=== PATIENT | female | born 1980 | race Caucasian/White ===

== ENCOUNTER 2022-10-30 21:26 | Emergency (ER) | payer OTHER, MEDICAID ==
[~2022-10-30 21:26] MED LIST: HYDR-3917 PO; IBUP-1971 PO; NORE-99 PO; ONDA-8 TL
[2022-10-30 21:56] VITALS: BP_SYST 93
--- NOTE | 2022-10-30 22:30 | NUR ---
ER at bedside examining patient.
[2022-10-30] MEDS ORDERED: ONDANSETRON 4 MG ODT TAB PO ONE (23:45)
[2022-10-30] MEDS ORDERED: DIPHENHYDRAMINE INJ 50 MG/ML VIAL IM ONE (23:45)
[2022-10-30] MEDS ORDERED: KETOROLAC TROMETHAMINE 30 MG VIAL IM ONE (23:45)
[2022-10-30] MEDS ORDERED: ACETAMINOPHEN 500 MG TABLET PO ONE (23:45)
[2022-10-31] MEDS ORDERED: [UNRECOGNIZED DRUG - CODE] PO (00:51)
[2022-10-31] MEDS ORDERED: SUMA1TAB6 PO (00:51)
[2022-10-31 01:07] VITALS: BP_SYST 138
--- NOTE | 2022-10-31 01:07 | NUR ---
Patient given written and verbal discharge instructions and verbalizes understanding. ER MD discussed with patient the results and treatment provided. Patient in stable condition. ID arm band removed. IV catheter removed intact and dressing applied, no active bleeding. Rx of ASPIRIN, SUMATRIPTAN given. Patient educated on pain management and to follow up with PMD. Pain Scale . Opportunity for questions provided and answered. Medication side effect fact sheet provided.
== END 2022-10-31 01:03 | disposition home or self-care (01) ==
LOC: SED 21:26
DX: G43.909 Migraine, unspecified, not intractable, without status migrainosus (principal); R42 Dizziness and giddiness; H57.11 Ocular pain, right eye; Z79.899 Other long term (current) drug therapy
CPT/HCPCS: 99283; 96372; Q0162; J1200; J1885

== ENCOUNTER 2023-01-19 13:18 | Emergency (ER) | payer OTHER, MEDICAID ==
[~2023-01-19] VITALS: Ht 157.5 cm; Wt 49.9 kg
[~2023-01-19 13:18] MED LIST changes: +SUMA1TAB6 PO; +[UNRECOGNIZED DRUG - CODE] PO
[2023-01-19 13:30] VITALS: BP_SYST 125; PULSE 67; RESP 19; TEMP 98; O2SAT 99
[2023-01-19 14:36] LABS: SERUM HCG (QUALITATIVE) NEGATIVE (NEGATIVE)
[2023-01-19 14:38] LABS: BASOPHILS # (AUTO) 0.1 K/uL (0.0-0.2); BASOPHILS % (AUTO) 0.7 % (0.0-2.0); EOSINOPHILS # (AUTO) 0.2 K/uL (0.0-0.4); EOSINOPHILS % (AUTO) 1.8 % (0.0-4.0); HEMATOCRIT 37.8 % (36-48); LYMPHOCYTES # (AUTO) 3.6 K/uL (1.0-5.5); LYMPHOCYTES % (AUTO) 32.5 % (20.5-51.5); MEAN CORPUSCULAR HEMOGLOBIN 29 pg (27-31); MEAN CORPUSCULAR HGB CONC 32 % (32-36); MEAN CORPUSCULAR VOLUME 92 fL (79.0-98.0); MONOCYTES # (AUTO) 0.9 K/uL (0.0-1.0); NEUTROPHILS # (AUTO) 6.4 K/uL (1.8-7.7); PLATELET COUNT (AUTO) 210 K/uL (130-430); RED BLOOD CELL COUNT(AUTO) 4.11 MIL/uL (4.2-6.2); RED CELL DISTRIBUTION WIDTH 15.6 % (9.0-15.0); WHITE BLOOD COUNT (AUTO) 11.1 K/uL (4.8-10.8)
[2023-01-19 14:41] LABS: CREATININE 0.72 mg/dL (0.55-1.30); POTASSIUM 3.6 mmol/L (3.5-5.1)
[2023-01-19 14:42] LABS: INR 1.1 (0.8-1.2); PROTHROMBIN TIME 11.3 SECS (9.5-12.5)
[2023-01-19] MEDS ORDERED: IBUPROFEN 800 MG TABLET PO ONE (14:45)
[2023-01-19] MEDS ORDERED: HYDROcodone/ACETAMIN 10-325 MG TAB PO ONE (14:45)
[2023-01-19 14:46] LABS: ALBUMIN 4.3 g/dL (3.4-4.8); TOTAL BILIRUBIN 0.6 mg/dL (0.0-1.0); TOTAL PROTEIN, SERUM 7.6 g/dL (6.4-8.3)
[2023-01-19] MEDS ORDERED: IBUP-1969 PO (15:54)
[2023-01-19] MEDS ORDERED: HYDR-3927 PO (15:54)
[2023-01-19 16:13] VITALS: BP_SYST 117; PULSE 66; RESP 14; TEMP 97.6; O2SAT 99
== END 2023-01-19 16:12 | disposition home or self-care (01) ==
LOC: SED 13:18
DX: S93.515A Sprain of interphalangeal joint of left lesser toe(s), initial encounter (principal); N93.9 Abnormal uterine and vaginal bleeding, unspecified; Z88.8 Allergy status to other drugs, medicaments and biological substances; Z79.899 Other long term (current) drug therapy; W10.9XXA Fall (on) (from) unspecified stairs and steps, initial encounter; Y93.89 Activity, other specified; Y92.89 Other specified places as the place of occurrence of the external cause; Y99.8 Other external cause status
CPT/HCPCS: 36415; 80053; 84703; 85025; 85610-TC; 85730-TC; 99283

== ENCOUNTER 2023-07-18 20:03 | Emergency (ER) | payer OTHER, MEDICAID ==
[~2023-07-18] VITALS: Ht 157.5 cm; Wt 54.4 kg
[~2023-07-18 20:03] MED LIST changes: +HYDR-3927 PO; +IBUP-1969 PO
[2023-07-18 20:13] VITALS: BP_SYST 108; PULSE 82; RESP 16; TEMP 97.6; O2SAT 98
[2023-07-18] MEDS ORDERED: HYDR-3917 PO (21:41)
[2023-07-18] MEDS ORDERED: IBUP-1969 PO (21:41)
[2023-07-18 21:45] LABS: INFLUENZA TYPE A NEGATIVE (NEGATIVE); INFLUENZA TYPE B NEGATIVE (NEGATIVE)
[2023-07-18] MEDS: IPRATROPIUM/ALBUTEROL SULFATE 3 ML AMPUL.NEB (DUONEB) INH ONE (22:13)
[2023-07-18] MEDS ORDERED: PSEU30TA36 PO (22:22)
[2023-07-18] MEDS ORDERED: ALBMDI INH (22:22)
[2023-07-18 22:38] VITALS: BP_SYST 105; PULSE 20; RESP 19; TEMP 97.7; O2SAT 97
== END 2023-07-18 22:38 | disposition home or self-care (01) ==
LOC: SED 20:03
DX: J40 Bronchitis, not specified as acute or chronic (principal); G43.909 Migraine, unspecified, not intractable, without status migrainosus; R07.89 Other chest pain; Z98.51 Tubal ligation status; Z79.899 Other long term (current) drug therapy; Z20.822 Contact with and (suspected) exposure to COVID-19
CPT/HCPCS: 36415; 71045; 94640; 99283

== ENCOUNTER 2024-03-15 00:06 | Emergency (ER) | payer OTHER, MEDICAID ==
[~2024-03-15] VITALS: Ht 157.5 cm; Wt 63.5 kg
[~2024-03-15 00:06] MED LIST changes: +ALBMDI INH; +PSEU30TA36 PO
[2024-03-15 00:36] VITALS: BP_SYST 111; PULSE 79; RESP 20; TEMP 97.5; O2SAT 100
[2024-03-15] MEDS ORDERED: IBUP-1969 PO (02:49)
[2024-03-15] MEDS: KETOROLAC TROMETHAMINE 60 MG/2 ML VIAL IM ONE (03:15)
[2024-03-15 03:17] VITALS: BP_SYST 111; PULSE 79; RESP 20; TEMP 97.5; O2SAT 100
== END 2024-03-15 03:15 | disposition home or self-care (01) ==
LOC: SED 00:06
DX: S83.91XA Sprain of unspecified site of right knee, initial encounter (principal); Z79.3 Long term (current) use of hormonal contraceptives; X50.1XXA Overexertion from prolonged static or awkward postures, initial encounter; Y93.89 Activity, other specified; Y92.89 Other specified places as the place of occurrence of the external cause; Y99.8 Other external cause status
CPT/HCPCS: 99283; 29505; 73564; 96372; J1885